=== PATIENT | female | born 1960 ===

== ENCOUNTER 2024-01-29 06:15 | Day surgery (SDC) | payer OTHER ==
[2024-01-29] MEDS ORDERED: MIDAZOLAM HCL 2 MG/2 ML VIAL IV ONE (10:45)
[2024-01-29] MEDS ORDERED: fentaNYL CITRATE 50 MCG/ML AMPUL IV PUSH ONE (10:45)
== END 2024-01-29 11:50 | disposition home or self-care (01) ==
LOC: AMB-ENDOS 06:15
PROVIDERS: ATTEND Colon & Rectal Surgery
DX: Z12.11 Encounter for screening for malignant neoplasm of colon (principal); Z88.6 Allergy status to analgesic agent; K60.4 Rectal fistula; Z86.010 Personal history of colon polyps; R19.4 Change in bowel habit

== ENCOUNTER 2024-02-27 08:11 | Outpatient (CLI) | payer OTHER | END 2024-02-27 08:16 | disposition home or self-care (01) | LOC: RX STUDY 08:11 | PROVIDERS: ATTEND Student in an Organized Health Care Education/Training Program | DX: N82.3 Fistula of vagina to large intestine (principal); N82.4 Other female intestinal-genital tract fistulae ==